=== PATIENT | male | born 1950 | race Caucasian/White ===

== ENCOUNTER 2022-02-25 00:07 | Day surgery (SDC) | payer OTHER, SELFPAY ==
[2022-02-06 13:33] VITALS: BMI 34.0
[2022-02-25 06:34] VITALS: BP 135/89; PULSE 91; RESP 18; TEMP 36.2; O2SAT 98
[2022-02-25] MEDS: LACTATED RINGERS 1,000 ML 150 ML IV CONT (06:47)
--- NOTE | 2022-02-25 07:29 | WPDANESEPPF ---
Anes - Initial Pre Proc Eval Procedure: Operation Date: 02/25/22 08:00 Proposed Procedures p Screening Colonoscopy - Mao Douglas MD Date/Time: 02/25/22 07:29 Surgeon: Mao Douglas MD Pre Op Diagnosis: family hx of colon ca Patient Data Age: 71 Gender: M Height: 1.75 m Weight: 101.7 kg Last Vital Signs Temp 97.2 F L 02/25/22 06:34 Pulse 91 02/25/22 06:34 Resp 18 02/25/22 06:34 BP 135/89 02/25/22 06:34 Pulse Ox 98 02/25/22 06:34 Allergies Allergy/AdvReac Type Severity Reaction Status Date / Time No Known Allergies Allergy Verified 02/25/22 06:33 Home Medications Medication Instructions Recorded Confirmed Type ergocalciferol (vitamin D2) 1,250 50,000 unit PO WEEKLY 90 Days #13 04/24/20 02/25/22 Rx mcg (50,000 unit) capsule cap allopurinol 300 mg tablet 300 mg PO DAILY #90 tablet 11/06/20 02/25/22 Rx atorvastatin 20 mg tablet 20 mg PO DAILY #90 tablet 11/06/20 02/25/22 Rx diclofenac-misoprostol [Arthrotec 1 tablet PO BID 02/06/22 02/25/22 History 75] Patient hx anesthesia problems: none Family hx anesthesia problems: none Results Review: All pre-operative results and documents have been reviewed as part of the pre-operative evaluation. [facility], [facility] Past Medical History Medical History (Updated 11/22/20 @ 15:49 by Austin Parrish MD Ty) Cholelithiasis Cystic disease of liver Diverticulosis of large intestine without hemorrhage Pulmonary nodules Varicella zoster virus (VZV) vaccine not administered given 09/14/2018 Social History Social History Smoking status: Former smoker Tobacco type: cigarettes Second hand tobacco smoke exposure: No Alcohol intake: current Alcohol use details: couple nights/wk Substance use type: does not use Living arrangements: with family Anes - Eval Final PreProcedure Day of Procedure 02/25/22 07:29 Patient weight: obese Heart: regular rate and rhythm and murmur Lungs: clear to auscultation Airway: Mallampati scale class III Neurological: alert and oriented Last oral intake: >/= 8 hours ASA classification: III Emergent: no Anesthetic plan: proceed Anesthesia type and monitoring: general GIVS and standard monitoring Results Review: All pre-operative results and documents have been reviewed as part of the pre-operative evaluation. Informed Consent: The patient's anesthetic plan and its attendant risks and benefits were discussed with the patient/family/POA. Questions were solicited and answers provided to the satisfaction of the patient/family/POA.
--- NOTE | 2022-02-25 07:53 | WPDGICN ---
Assessment and Plan Assessment and plan (1) Family hx of colon cancer: Code(s): Z80.0 - Family history of malignant neoplasm of digestive organs Status: Acute Assessment and Plan: Patient has a family history of colon cancer in his brother. Plan is for surveillance colonoscopy now and consider this a 5 year intervals in the future. Further recommendations may be given after colonoscopy. GI Consult Note Consult date/time: 02/25/22 07:53 HPI: Alejandro Duke is a 71 year old male Presents for screening colonoscopy. Patient's current weight appetite and bowel movements are normal. He denies abdominal pain. He has had no bleeding. Family history is significant that his brother had colon cancer. Patient presents today for neoplasia screening colonoscopy. Review of Systems Review of Systems: All systems reviewed & are unremarkable except as noted in HPI and below [facility] Past Medical History Medical History (Updated 02/25/22 @ 07:54 by Mao Douglas MD) Cholelithiasis Cystic disease of liver Diverticulosis of large intestine without hemorrhage Pulmonary nodules Varicella zoster virus (VZV) vaccine not administered given 09/14/2018 Social History Social History Smoking status: Former smoker Tobacco type: cigarettes Second hand tobacco smoke exposure: No Alcohol intake: current Alcohol use details: couple nights/wk Substance use type: does not use Living arrangements: with family Meds Home Medications and Allergies Home Medications Medication Instructions Recorded Confirmed Type ergocalciferol (vitamin D2) 1,250 50,000 unit PO WEEKLY 90 Days #13 04/24/20 02/25/22 Rx mcg (50,000 unit) capsule cap allopurinol 300 mg tablet 300 mg PO DAILY #90 tablet 11/06/20 02/25/22 Rx atorvastatin 20 mg tablet 20 mg PO DAILY #90 tablet 11/06/20 02/25/22 Rx diclofenac-misoprostol [Arthrotec 1 tablet PO BID 02/06/22 02/25/22 History 75] Allergies Allergy/AdvReac Type Severity Reaction Status Date / Time No Known Allergies Allergy Verified 02/25/22 06:33 Vital Signs Vital Signs - 24 hr 02/25/22 06:34 Temperature 97.2 F L Pulse Rate 91 Respiratory Rate 18 Blood Pressure 135/89 Pulse Oximetry 98 Exam Narrative: Physical exam reveals patient to be alert. Vital signs stable. HEENT exam is unremarkable. Patient is anicteric. Lungs are clear to auscultation and percussion. Heart is without murmur or extra sounds. Abdominal exam bowel sounds are present soft nontender with no organomegaly. Digital external rectal exam is normal.
[2022-02-25 08:21] VITALS: BP 96/49; PULSE 87; RESP 25; O2SAT 94
[2022-02-25 08:31] VITALS: BP 115/64; PULSE 87; RESP 26; O2SAT 98
[2022-02-25 08:41] VITALS: BP 113/64; PULSE 88; RESP 28; O2SAT 96
== END 2022-02-25 08:49 | disposition home or self-care (01) ==
PROVIDERS: PCP Family Medicine; Visit Provider Internal Medicine Gastroenterology
PROC: 0DJD8ZZ Inspection of Lower Intestinal Tract, Via Natural or Artificial Opening Endoscopic (ICD-10-PCS; CPT 45378; principal; 2022-02-25 08:00)
DX: Z12.11 Encounter for screening for malignant neoplasm of colon (principal); Z80.0 Family history of malignant neoplasm of digestive organs; D12.5 Benign neoplasm of sigmoid colon; K64.8 Other hemorrhoids; K57.30 Diverticulosis of large intestine without perforation or abscess without bleeding; K80.20 Calculus of gallbladder without cholecystitis without obstruction; K76.9 Liver disease, unspecified; Z87.891 Personal history of nicotine dependence; E66.9 Obesity, unspecified; Z68.33 Body mass index [BMI] 33.0-33.9, adult
CPT/HCPCS: 45385; 88305; J2704; J7120